=== PATIENT | male | born 1995 | race Caucasian/White ===

== ENCOUNTER 2024-07-03 17:40 | Emergency (ER) | payer OTHER, SELFPAY ==
[2024-07-03 17:44] VITALS: BP 152/100; PULSE 68; TEMP 36.6; O2SAT 99; BMI 27.7
--- NOTE | 2024-07-03 17:58 | ED.CHESTPAI1 ---
HPI - Chest Pain General Chief Complaint: Chest Pain Stated Complaint: CP Time Seen by Provider: 07/03/24 17:52 Source: patient Mode of arrival: walk-in Limitations: no limitations History of Present Illness HPI narrative: This patient is here for evaluation of chest pain. Yesterday he had surgery on his right hand at a different institution. He believes he had general anesthesia. He has had this chest pain before but seems to be a little bit worse today. He said he has had blood test and EKGs done before and they were normal. He has not had an echocardiogram and he has not had stress test. 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 He is not any medication. He admits to regular use of marijuana but not tobacco products. He has no nausea vomiting or diaphoresis today. His vital signs are noted with blood pressure 152/100 but his pulse ox is 99% with a normal respiratory rate of 18. An EKG was done on his arrival here when he was symptomatic and shows normal sinus rhythm with no ischemia injury or ST segment elevation. His intervals are all normal as well. Related Data Home Medications ?Medication ?Instructions ?Recorded ?Confirmed hydrocodone 5 mg-acetaminophen 325 2 tab PO .Q6 07/03/24 07/03/24 mg tablet ibuprofen 800 mg tablet 800 mg PO Q8H 07/03/24 07/03/24 lisdexamfetamine 70 mg capsule mg 07/03/24 (Vyvanse) omeprazole 40 mg capsule,delayed mg 07/03/24 release oxcarbazepine 150 mg tablet mg 07/03/24 Allergies Allergy/AdvReac Type Severity Reaction Status Date / Time No Known Drug Allergies Allergy Verified 07/03/24 17:49 PFSH PFSH Social History Little interest or pleasure in doing things: not at all Feeling down, depressed, or hopeless: not at all Exam Narrative Exam Narrative: Awake alert [place] x 3. Very mellow subdued attitude consistent with recent marijuana use in my clinical opinion. He is not clammy or diaphoretic. His skin is warm and dry he has good pulses to the upper extremities. He has no tearing or ripping sensation in his back. Twelve-lead EKG as noted above was normal. His clinical examination shows no jugular vein distention. Upper airway is normal with no stridor or difficulty breathing. His lungs were clear with no wheeze rales or rhonchi. Heart sounds are normal with no S3-S4 clicks rubs gallops or murmurs. There is no subcutaneous emphysema. There is good breath sounds bilaterally as noted. Rest of examination is normal. He does not have any swelling of his legs or edema Constitutional Vital Signs, click to edit/add: Last Vital Signs Temp 98 F 07/03/24 17:44 Pulse 68 07/03/24 17:44 Resp 18 07/03/24 17:44 BP 152/100 H 07/03/24 17:44 Pulse Ox 99 07/03/24 17:44 O2 Del Method Room Air 07/03/24 17:44 Course Vital Signs Vital signs: Vital Signs Temperature 98 F 07/03/24 17:44 Pulse Rate 68 07/03/24 17:44 Respiratory Rate 18 07/03/24 17:44 Blood Pressure 152/100 H 07/03/24 17:44 Pulse Oximetry 99 07/03/24 17:44 Oxygen Delivery Method Room Air 07/03/24 17:44 Temperature 98 F 07/03/24 17:44 Pulse Rate 68 07/03/24 17:44 Respiratory Rate 18 07/03/24 17:44 Blood Pressure 152/100 H 07/03/24 17:44 Pulse Oximetry 99 07/03/24 17:44 Oxygen Delivery Method Room Air 07/03/24 17:44 MDM - Chest Pain MDM Narrative Medical decision making narrative: Patient has general surgery for hand surgery yesterday. We will do a general workup including EKG cardiac enzymes D-dimer chest x-ray. Care will be turned over the next physician Discharge Plan Discharge Chief Complaint: Chest Pain Clinical Impression: Atypical chest pain Prescriptions / Home Meds: No Action oxcarbazepine 150 mg tablet ibuprofen 800 mg tablet 800 mg PO Q8H hydrocodone-acetaminophen 5-325 mg tablet 2 tab PO .Q6 omeprazole 40 mg capsule,delayed release(DR/EC) lisdexamfetamine [Vyvanse] 70 mg capsule Print Language: Azeri Referrals: Wilbert Allred MD [Primary Care Provider] - 1 week
--- NOTE | 2024-07-03 18:01 | XR_ITS ---
The [address] [address] Patient Name: NUHA HINOJOSA MRN: [id number] date: 1995 Sex: M Assigned Patient Location: ER Current Patient Location: Accession/Order Number: [id number] Exam Date: 07/03/2024 18:08 Report Date: 07/03/2024 19:53 At the request of: NITO MONTOYA Procedure: XR chest 1V EXAM: XR chest 1V TECHNIQUE: Single AP view chest HISTORY: Chest pain COMPARISON: None. FINDINGS: The heart and mediastinum are unremarkable. The lung bergman are clear of any acute infiltrate, effusion or mass. No acute bony abnormality. XR/XR chest 1V IMPRESSION: No acute pulmonary disease. Electronically authenticated by: FADI HOLLOWAY Date: 07/03/2024 19:53
--- NOTE | 2024-07-03 18:01 | ECG_ITS ---
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
[2024-07-03] MEDS: KETOROLAC TROMETHAMINE 30 MG/ML VIAL IVP (18:12)
[2024-07-03 18:14] LABS: Basophils Absolute Auto 0.1 10^3/uL (0.0-0.1); Basophils Percent Auto 0.4 % (0.2-2.0); Eosinophils Absolute Auto 0.1 10^3/uL (0.0-0.7); Eosinophils Percent Auto 0.8 % (0.9-7.0); Hematocrit 40.5 % (42.0-54.0); Hemoglobin 13.6 g/dL (14.0-18.0); Immature Granulocytes Abs Auto 0.05 10^3/uL (0.00-0.03); Immature Granulocytes Pct Auto 0.4 % (0.0-0.5); Lymphocytes Absolute Auto 2.5 10^3/uL (1.2-3.8); Lymphocytes Percent Auto 21.2 % (20.5-60.0); Mean Corpuscular HGB Conc 33.6 g/dL (29.9-35.2); Mean Corpuscular Hemoglobin 27.3 pg (25.9-34.0); Mean Corpuscular Volume 81.2 fL (80.0-94.0); Monocytes Absolute Auto 0.7 10^3/uL (0.3-0.8); Neutrophils Absolute Auto 8.3 10^3/uL (1.4-6.5); Neutrophils Percent Auto 71.2 % (43.0-75.0); Platelet Count 331 10^3/uL (150-450); Red Blood Count 4.99 10^6/uL (4.70-6.10); Red Cell Distribution Width 11.7 % (11.0-15.0); White Blood Count 11.7 10^3/uL (4.0-11.0)
[2024-07-03 18:39] LABS: Anion Gap 13.4; Calcium 8.9 mg/dL (8.5-10.1); Chloride 107 mmol/L (98-107); Estimated GFR (African America >60 (>=60 mL/min/1.73m^2); Estimated GFR (Non-African Ame >60 (>=60 mL/min/1.73m^2); Glucose 84 mg/dL (74-106); Potassium 3.4 mmol/L (3.5-5.1); Sodium 145 mmol/L (136-145); Troponin I High Sensitivity 5.8 pg/mL (4.0-76.1)
[2024-07-03 18:45] LABS: D Dimer <0.19 mg/L FEU (<=0.59)
[2024-07-03 18:59] VITALS: BP 135/85; PULSE 60; O2SAT 99
== END 2024-07-03 18:59 | disposition home or self-care (01) ==
PROVIDERS: Emergency Provider Emergency Medicine Emergency Medical Services
DX: R07.89 Other chest pain (principal); Z98.890 Other specified postprocedural states
CPT/HCPCS: 36415; 71045; 80048; 83880; 84484; 85025; 85378; 93005; 96374; 99285; J1885